=== PATIENT | female | born 1990 | race African-American/Black ===

== ENCOUNTER 2016-11-12 19:18 | Emergency (ER) | payer OTHER ==
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
== END 2016-11-12 19:30 ==
LOC: CED 19:18
DX: O60.03 Preterm labor without delivery, third trimester (principal); O99.89 Other specified diseases and conditions complicating pregnancy, childbirth and the puerperium; M25.532 Pain in left wrist; Z3A.34 34 weeks gestation of pregnancy; Z98.890 Other specified postprocedural states
CPT/HCPCS: 36415; 73110; 99285

== ENCOUNTER 2017-01-18 17:17 | Emergency (ER) | payer OTHER ==
--- NOTE | ~2017-01-18 | EKG ---
PATIENT: GARFIELD MARTINEZ UNIT #: [id number] Ventricular Rate: 51 BPM Atrial Rate: 51 BPM P-R Interval: 148 ms QRS Duration: 78 ms Q-T Interval: 428 ms QTC Calculation(Bezet): 394 ms P [place]: 41 degrees Calculated R [place]: 60 degrees Calculated T [place]: 45 degrees Diagnosis Line: Sinus bradycardia with Premature atrial complexes Diagnosis Line: Poor R wave progression questionable lead position Diagnosis Line: or body habitus Diagnosis Line: Cannot rule out Septal infarct Diagnosis Line: Abnormal ECG Diagnosis Line: No previous ECGs available Diagnosis Line: Confirmed by AIRAM EDEN MD ([id number]) on 01/19/2017 Diagnosis Line: 8:30:36 PM INTERPRETING MD: MEEK PINA
--- NOTE | ~2017-01-18 | CR72 ---
[facility] A Service of [facility] & [facility] RADIOLOGY TEXT RESULTS PATIENT: GARFIELD MARTINEZ LOCATION: [facility] : 88 UNIT #: [id number] AGE: [address]: Jose Grissom MD SEX: F ORDER DR: [id number] [facility] [address] [place], [place] [address] [id number] E MR#: [id number] Acc #: [id number] NAME: GARFIELD MARTINEZ : 1990 SEX: F STUDY DATE/TIME: 01/18/2017 20:48 UNIT: [facility] ROOM: STUDY DESCRIPTION: CR Chest Single View Portable Attending Physician: Jose Grissom M.D. Ordering Physician: Jose Grissom M.D. Primary Care Physician: No Primary Care Physician MEDICAL IMAGING REPORT This report is preliminary unless electronic signature is present EXAMINATION AP portable chest. DATE 01/18/2017 HISTORY History of left chest pain radiating to both shoulders. 26-year-old female. COMPARISON None. FINDINGS A single AP view of the chest shows both lungs to be clear. The heart is normal in size. The mediastinal contour is normal. No significant bone abnormalities are seen. IMPRESSION Normal AP portable chest. Dictated by... Rupa Buitrago M.D. THIS IS AN ELECTRONICALLY VERIFIED REPORT Rupa Buitrago M.D. at 01/19/2017 10:03 AM KRYS/lul TD: 01/18/2017 23:03 JOB #: [id number] MEDICAL IMAGING REPORT Page 1 of 1 COPY
[2017-01-18 20:53] LABS: POC - CKMB <1.0 ng/mL (0.0-7.9); POC - TROPONIN <0.05 ng/mL (<=0.05)
[2017-01-18 21:00] LABS: BASOPHIL% 0.5 % (0-2.5); EOSINOPHIL# 0.1 X10e3 (0-0.7); EOSINOPHIL% 1.2 % (0.0-7.0); HEMATOCRIT 40.8 % (35.0-45.0); LYMPHOCYTE# 2.4 X10e3 (1.0-3.5); LYMPHOCYTE% 30.2 % (17.0-45.0); MEAN CELL VOLUME 86.4 FL (83-96); MEAN CORPUSCULAR HEMOGLOBIN 27.5 PG (28-34); MEAN CORPUSCULAR HGB CONC 31.9 g/dL (30-36); MEAN PLATELET VOLUME 10.7 FL (6.5-11.5); MONOCYTE# 0.5 X10e3 (0-1.0); MONOCYTE% 5.9 % (3.0-12.0); NEUTROPHIL# 4.9 X10e3 (1.5-7.1); NEUTROPHIL% 62.2 % (40-75); PLATELET COUNT 205 X10e3 (140-420); RED BLOOD COUNT 4.72 X10e (3.90-5.30); RED CELL DISTRIBUTION WIDTH 14.5 % (11.0-15.5); WHITE BLOOD COUNT 7.9 X10e3 (4.0-10.5)
[2017-01-18 21:04] LABS: DIFF IND NO
[2017-01-18 21:26] LABS: ALBUMIN SERUM 4.2 g/dL (3.5-5.0); BILIRUBIN, DIRECT 0.1 mg/dL (0.0-0.2); BILIRUBIN,INDIRECT 0.5 mg/dL (0.0-0.9); BILIRUBIN,TOTAL 0.6 mg/dL (0.2-2.0); BUN/CREATININE RATIO 25.71; CALCIUM SERUM 9.4 mg/dL (8.4-10.2); CREATININE SERUM 0.7 mg/dL (0.6-1.4); GLOM FILT RATE Estimated 137.6 mL/min (>60); POTASSIUM 3.8 mmol/L (3.5-5.1); PROTEIN TOTAL SERUM 7.6 g/dL (6.0-8.3)
== END 2017-01-18 22:26 | disposition home or self-care (01) ==
LOC: CED 17:17
PROVIDERS: Emergency Medicine
DX: R07.89 Other chest pain (principal); R20.2 Paresthesia of skin; M54.10 Radiculopathy, site unspecified
CPT/HCPCS: 36415; 71010; 80048; 80076; 82553; 84484; 85025; 93005; 99285